=== PATIENT | male | born 1960 | race Caucasian/White ===

== ENCOUNTER 2023-01-22 10:30 | Outpatient (CLI) | payer OTHER, SELFPAY ==
[2023-01-23 14:11] LABS: Basophils Absolute Auto 0.1 K/mm3 (0.0-0.1); Basophils Percent Auto 0.7 % (0.2-1.2); Eosinophils Absolute Auto 0.4 K/mm3 (0-0.3); Eosinophils Percent Auto 5.7 % (0-4.4); Hemoglobin 13.5 g/dL (14.0-18.0); Immature Granulocyte Absolute 0.05 K/mm3 (0.00-0.031); Immature Granulocyte Percent A 0.7 % (0-0.5); Lymphocytes Absolute Auto 1.91 K/mm3 (0.9-3.2); Mean Corpuscular HGB Conc 32.1 g/dl (32-36); Mean Corpuscular Hemoglobin 26.5 pg (26-34); Mean Corpuscular Volume 82.4 fl (80-100); Mean Platelet Volume 9.5 fl (7.4-10.4); Monocytes Absolute Auto 0.7 K/mm3 (0.1-0.6); Monocytes Percent Auto 9.8 % (2.6-8.5); Neutrophils Percent Auto 56.1 % (45.5-73.1); Platelet Count Result 273 k/mm3 (150-375); Red Cell Distribution Width 15.2 % (11.5-14.5); White Blood Count 7.1 K/mm3 (4.5-10.0)
[2023-01-23 21:55] LABS: Alanine Aminotransferase 28 U/L (6-50); Albumin Level 4.6 g/dL (3.5-5.1); Alkaline Phosphatase 92 U/L (38-126); Anion Gap 12 mmol/L (8-16); Aspartate Amino Transferase 28 U/L (17-59); Bilirubin,Total 0.7 mg/dL (0.2-1.3); Blood Urea Nitrogen 26 mg/dL (9-20); Carbon Dioxide 25 mmol/L (22-30); Chloride 103 mmol/L (98-107); Estimated Glomerular Filt Rate > 60; Glucose 152 mg/dL (65-110); Potassium 4.8 mmol/L (3.4-5.0); Sodium 140 mmol/L (137-145)
[2023-01-23 22:28] LABS: Prostate Specific Antigen < 0.1 ng/mL (< OR = 4.0)
== END 2023-01-22 10:31 | disposition home or self-care (01) ==
LOC: ANHLAB 01-23 10:30
PROVIDERS: Visit Provider Internal Medicine Hematology & Oncology
DX: C61 Malignant neoplasm of prostate (principal); C77.5 Secondary and unspecified malignant neoplasm of intrapelvic lymph nodes
CPT/HCPCS: 36415; 80053; 84153; 85025

== ENCOUNTER 2023-02-19 12:56 | Outpatient (CLI) | payer OTHER, SELFPAY ==
[2023-02-19 16:27] LABS: INR 2.4
== END 2023-02-19 12:57 | disposition home or self-care (01) ==
LOC: ANHLAB 12:59
PROVIDERS: Visit Provider Internal Medicine Hematology & Oncology
DX: Z79.01 Long term (current) use of anticoagulants (principal)
CPT/HCPCS: 36415; 85610

== ENCOUNTER 2023-05-26 10:39 | Outpatient (CLI) | payer OTHER, SELFPAY ==
[2023-05-26 12:13] LABS: INR 2.2; Prothrombin Time 26.3 Seconds (11.1-14.7)
== END 2023-05-26 10:40 | disposition home or self-care (01) ==
LOC: ANHLAB 10:42
DX: I80.10 Phlebitis and thrombophlebitis of unspecified femoral vein (principal)
CPT/HCPCS: 36415; 85610

== ENCOUNTER 2023-05-30 10:02 | Outpatient (CLI) | payer OTHER, SELFPAY ==
--- NOTE | ~2023-05-30 | CT_ITS ---
EXAMINATION: CT chest abdomen pelvis w con DATE: 05/30/2023 10:39 INDICATION: Metastatic prostate cancer TECHNIQUE: Transaxial computed tomographic images of the chest, abdomen, and pelvis were obtained aft er the administration of 100 cc of Omnipaque 350 intravenous contrast. The dose-length product (DLP) was 1933.33 mGy-cm. Automated exposure control and iterative reconstruction technique were employed. COMPARISON: None FINDINGS: CHEST CT: There is a 2 mm nodule of the right lung apex. There are calcified nodule of the left lower lobe, con sistent with old granulomatous disease. No pleural effusion or pneumothorax. There is mild elevation of the right hemidiaphragm. Dependent atelectasis is noted. There is mild bilateral gynecomastia. Fabricio cified coronary artery atherosclerosis is noted. No pathologically enlarged thoracic lymph nodes are identified. The heart size is normal. 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 There is moderate thoracic spondylosis. ABDOMEN/PELVIS CT: The liver is diffusely low in attenuation when compared with the spleen, consistent with hepatic stea tosis. Punctate calcifications in an otherwise normal spleen likely represent healed granulomatous di sease. The pancreas, gallbladder, and adrenal glands are normal. The right kidney is unremarkable. Th ere is a 12 mm cyst of the left kidney. There are mildly enlarged right obturator lymph nodes. There is a mildly enlarged right inguinal lymph node. No free intraperitoneal gas or evidence of bowel obst ruction. The appendix is normal. There is an umbilical hernia containing fat. There is moderate lumba r spondylosis. IMPRESSION: 1. 2 mm nodule of the right lung apex, likely old granulomatous disease. 2. Mildly enlarged right pelvic and inguinal lymph nodes which could reflect metastatic disease. Reviewed, dictated and finalized at location F. IMPRESSION: 1. 2 mm nodule of the right lung apex, likely old granulomatous disease. 2. Mildly enlarged right pelvic and inguinal lymph nodes which could reflect me tastatic disease.
[2023-05-30 10:32] LABS: Estimated Glomerular Filt Rate > 60
== END 2023-05-30 10:03 | disposition home or self-care (01) ==
PROVIDERS: Visit Provider Internal Medicine Hematology & Oncology
DX: C61 Malignant neoplasm of prostate (principal); C77.5 Secondary and unspecified malignant neoplasm of intrapelvic lymph nodes; R91.1 Solitary pulmonary nodule; R59.9 Enlarged lymph nodes, unspecified
CPT/HCPCS: 71260; 74177; Q9967

== ENCOUNTER 2023-08-15 08:57 | Outpatient (CLI) | payer OTHER, SELFPAY ==
[2023-08-15 09:18] LABS: Basophils Percent Auto 0.7 % (0.2-1.2); Eosinophils Absolute Auto 0.4 K/mm3 (0-0.3); Eosinophils Percent Auto 6.3 % (0-4.4); Hematocrit 43.7 % (42.0-52.0); Hemoglobin 14.2 g/dL (14.0-18.0); Immature Granulocyte Absolute 0.03 K/mm3 (0.00-0.031); Immature Granulocyte Percent A 0.5 % (0-0.5); Lymphocytes Absolute Auto 1.81 K/mm3 (0.9-3.2); Lymphocytes Percent Auto 31.5 % (18.3-44.2); Mean Corpuscular HGB Conc 32.5 g/dl (32-36); Mean Corpuscular Hemoglobin 26.5 pg (26-34); Mean Corpuscular Volume 81.5 fl (80-100); Mean Platelet Volume 9.6 fl (7.4-10.4); Monocytes Absolute Auto 0.6 K/mm3 (0.1-0.6); Monocytes Percent Auto 9.9 % (2.6-8.5); Neutrophils Absolute Auto 2.9 K/mm3 (1.3-6.7); Neutrophils Percent Auto 51.1 % (45.5-73.1); Platelet Count Result 180 k/mm3 (150-375); Red Blood Count 5.36 M/mm3 (4.6-6.20); Red Cell Distribution Width 14.7 % (11.5-14.5); White Blood Count 5.8 K/mm3 (4.5-10.0)
[2023-08-15 10:26] LABS: Alanine Aminotransferase 25 U/L (6-50); Albumin Level 4.3 g/dL (3.5-5.1); Alkaline Phosphatase 89 U/L (38-126); Anion Gap 11 mmol/L (8-16); Aspartate Amino Transferase 28 U/L (17-59); Bilirubin,Total 0.8 mg/dL (0.2-1.3); Blood Urea Nitrogen 20 mg/dL (9-20); Calcium 9.4 mg/dL (8.4-10.2); Carbon Dioxide 28 mmol/L (22-30); Chloride 101 mmol/L (98-107); Estimated Glomerular Filt Rate > 60; Glucose 166 mg/dL (65-110); Potassium 4.1 mmol/L (3.4-5.0); Sodium 140 mmol/L (137-145)
[2023-08-15 10:34] LABS: INR 2.3; Prothrombin Time 26.6 Seconds (11.1-14.7)
[2023-08-15 11:13] LABS: Prostate Specific Antigen < 0.1 ng/mL (< OR = 4.0)
== END 2023-08-15 08:58 | disposition home or self-care (01) ==
LOC: ANHLAB 08:59
PROVIDERS: Visit Provider Internal Medicine Hematology & Oncology
DX: C61 Malignant neoplasm of prostate (principal); C77.5 Secondary and unspecified malignant neoplasm of intrapelvic lymph nodes; I80.10 Phlebitis and thrombophlebitis of unspecified femoral vein
CPT/HCPCS: 36415; 80053; 84153; 85025; 85610

== ENCOUNTER 2024-03-08 11:30 | Outpatient (CLI) | payer OTHER, SELFPAY ==
[2024-03-08 12:27] LABS: Triglycerides 222 mg/dL (<150)
[2024-03-08 12:31] LABS: Creatinine Urine 97.8 mg/dL
[2024-03-08 12:31] LABS: INR 2.1; Prothrombin Time 23.9 Seconds (11.1-14.7)
[2024-03-08 12:36] LABS: Hemoglobin A1C 6.8 % (<5.7)
[2024-03-08 12:58] LABS: MALB Creatinine Ratio < 6.1 mg/g (0-30); Microalbumin Urine Random < 6.0 mg/L (0-16.7)
[2024-03-08 13:41] LABS: Iron 73 ug/dL (49-181)
[2024-03-08 13:50] LABS: Percent Iron Saturation 23 % (20-50)
== END 2024-03-08 11:31 | disposition home or self-care (01) ==
PROVIDERS: Visit Provider Internal Medicine Hematology & Oncology
DX: Z01.84 Encounter for antibody response examination (principal); E11.65 Type 2 diabetes mellitus with hyperglycemia; R79.0 Abnormal level of blood mineral; Z86.718 Personal history of other venous thrombosis and embolism
CPT/HCPCS: 36415; 80053; 82043; 83036; 83540; 83550; 84153; 84478; 85025; 85610; 86787

== ENCOUNTER 2024-06-29 12:39 | Outpatient (CLI) | payer OTHER, SELFPAY ==
[2024-06-29 13:41] LABS: INR 1.8; Prothrombin Time 21.4 Seconds (11.1-14.7)
== END 2024-06-29 12:40 | disposition home or self-care (01) ==
LOC: ANHLAB 12:41
PROVIDERS: Visit Provider Internal Medicine Hematology & Oncology
DX: I87.2 Venous insufficiency (chronic) (peripheral) (principal)
CPT/HCPCS: 36415; 85610